=== PATIENT | female | born 1940 | race Caucasian/White ===

== ENCOUNTER 2017-10-09 22:45 | Inpatient (IN) | payer OTHER, MEDICAID ==
[2017-10-09] MEDS ORDERED: NS 1,000 ML IV ONE (22:50)
--- NOTE | 2017-10-09 22:55 | EDPHY ---
H & P HPI/ROS: HPI CHIEF COMPLAINT: Abnormal labs at residential HISTORY OF PRESENT ILLNESS: This patient is a 76-year-old female, she resides at [facility], she has a history of MS. She presents to the emergency room with acute dehydration, and apparently had labs done that showed worsening kidney function with a high BUN and creatinine. Upon arrival to the emergency room the patient has no complaints but she appears very dry on exam. She appears very dehydrated. She is very thin skin. Mucous membranes are dry. She denies chest pain or shortness of breath. She does complain of generalized weakness. Past Medical History: MS, gait instability Past Surgical History: No recent surgery. Social History: Denies drugs alcohol tobacco. Lives at [place]. Family History: Noncontributory ROS REVIEW OF SYSTEMS: A comprehensive 10 point review of systems is otherwise negative aside from elements mentioned in the history of present illness. Exam Constitutional dry, dehydrated, dry mucous membranes triage nursing summary reviewed, vital signs reviewed, awake/alert. Eyes normal conjunctivae and sclera, EOMI, PERRLA. HENT normal inspection, atraumatic, dry mucus membranes, no epistaxis, neck supple/ no meningismus, no raccoon eyes. Respiratory clear to auscultation bilaterally, normal breath sounds, no respiratory distress, no wheezing. Cardiovascular rate normal, regular rhythm, no murmur, no edema, distal pulses normal. Gastrointestinal soft, non-tender, no rebound, no guarding, normal bowel sounds, no distension, no pulsatile mass. Genitourinary no CVA tenderness. Musculoskeletal no midline vertebral tenderness, full range of motion, no calf swelling, no tenderness of extremities, no meningismus, good pulses, neurovascularly intact. Skin Back'/Gluteus: Skin breakdown present. erythemetous. Neurologic awake, alert and oriented x 3, AAOx3, moves all 4 extremities equally, motor intact, sensory intact, CN II-XII intact, normal cerebellar, normal vision, normal speech. Psychiatric normal mood/affect. Heme/Lymph/Immune no lymphadenopathy. Differential Diagnosis: Includes but is not limited to in a particular order acute dehydration, electrolyte disturbance, renal failure, infection, UTI Medical Decision Making: Plan for this patient IV establishment fluid bolus as she appears very on exam, check basic blood work, UA, Barton catheter for strict inside out if his renal failure. Re-evaluation: 1204AM: Patient is in renal failure. BUN is elevated psoas creatinine however potassium is okay. She does appear very dry on exam. I will place Barton catheter to watch is outs to make sure she is actually making urine. She will receive IV fluids 1 L here emergency room. Check UA for infection. Will the hospitalist service for acute renal failure. 1205am; I had a lengthy discussion with the son at bedside as well as patient about need for transfer as we are boarding multiple patients in the emergency room neck currently there are no beds in the hospital. However after lengthy discussion the patient refuses transfer to another facility as she would like to stay here [facility]. Does not want to be transferred. She states that she normally gets her care here. Given that the patient does not want to be transferred I will not force the issue. She will board here in emergency. She understands she could board up until mid day tomorrow. She is fine with this. So son at bedside. Patient's ultrasound reviewed. Shows pyelonephritis. No abscess. Patient here received 3rd L fluid. UA shows UTI with pyelonephritis. 1 g Rocephin has been given. Urine cultures have been pulled blood cultures been pulled. Patient has been admitted to the hospitalist service for UTI, pyelonephritis, dehydration, renal failure. Re-evaluate most likely due to pre renal. Source: Patient, Family, EMS Constitutional: Initial Vital Signs Heart Rate 100 10/10/17 00:00 Respiratory Rate 20 10/10/17 00:00 Blood Pressure 130/58 H 10/10/17 00:00 O2 Sat (%) 92 10/10/17 00:00 O2 Delivery Mode Room Air Allergies/Adverse Reactions: terfenadine [From Seldane] Allergy (Verified 01/07/11 21:53) Other-Enter Comments MAKEUP Allergy (Severe, Uncoded 01/07/11 21:53) EYES SWELLING MOLDS Allergy (Mild, Uncoded 01/07/11 21:53) Rash NEWSPAPER INK Allergy (Mild, Uncoded 01/07/11 21:53) Congestion TREES/GRASSES Allergy (Mild, Uncoded 01/07/11 21:53) Congestion Home Medications: Medication Instructions Recorded Acetaminophen [Tylenol ES 500 mg 1,000 mg PO Q8HRS PRN 10/10/17 (*)] Aspirin [Aspirin 325 mg (*)] 650 mg PO Q8HRS PRN 10/10/17 Atorvastatin Calcium [Lipitor 20 20 mg PO DAILY 10/10/17 mg (*)] Cetirizine [ZyrTEC 10 mg (*)] 10 mg PO DAILY 10/10/17 Ergocalciferol [Vitamin D2 (*)] 50,000 unit PO Q30D 10/10/17 Estrogens,Conjugated [Premarin 1 lyle VG Q2D 10/10/17 Vaginal (*)] Fluticasone Nasal [Flonase Nasal 1 sprays NASAL BID 10/10/17 Davilla (RX)] Gluc Oxid/l-Peroxid/Muramidase 15 ml MM Q8HRS PRN 10/10/17 [Biotene Mouthwash (*)] Multivitamins [Multivitamin (*)] 1 each PO DAILY 10/10/17 Ns [NS IV 1000ml (*)] 1,000 ml IV ONCE PRN 10/10/17 Ondansetron Odt [Zofran Odt 4 mg 8 mg PO Q8HRS PRN 10/10/17 (*)] Oseltamivir Phosphate [Tamiflu] 30 mg PO Q2D 10/10/17 Tamsulosin HCl [Flomax 0.4 MG (*)] 0.4 mg PO DAILY 10/10/17 Teriflunomide [Aubagio] 14 mg PO DAILY 10/10/17 Medical Decision Making - Data Points Laboratory Results: Laboratory Results 10/09/17 23:15 10/09/17 23:15 Medications Given: Acetaminophen (Tylenol) 1,000 mg PO Q8HRS PRN PRN Reason: Pain, Mild Stop: 04/08/18 09:04 Last Admin: 10/11/17 09:28 Dose: 1,000 mg Hydrocodone Bitart/Acetaminophen ([place] 5/325) 1 tab PO Q4HRS PRN PRN Reason: Pain, Moderate Able to Take PO Stop: 10/20/17 01:27 Last Admin: 10/13/17 21:03 Dose: 1 tab Alteplase, Recombinant (Cathflo Activase) 2 mg IVP PRN PRN PRN Reason: Per PICC line policy Stop: 04/08/18 17:56 Last Admin: 01/20/18 03:36 Dose: 2 mg Atorvastatin Calcium (Lipitor) 20 mg PO DAILY ROSEANN Stop: 04/09/18 08:59 Last Admin: 10/13/17 10:25 Dose: Not Given Cetirizine HCl (Zyrtec) 10 mg PO DAILY ROSEANN Stop: 04/09/18 08:59 Last Admin: 10/13/17 10:24 Dose: Not Given Estrogens Conjugated (Premarin Vaginal) 1 gm VG Q2D ROSEANN Stop: 04/10/18 08:59 Last Admin: 10/12/17 08:36 Dose: Not Given Fluticasone Propionate (Flonase Nasal Davilla) 1 sprays EACHNARE BID ROSEANN Stop: 04/08/18 20:59 Last Admin: 10/13/17 21:06 Dose: Not Given Glucose Oxid/Lactoperoxid/Muramidas (Biotene Mouthwash) 15 ml MM Q8HRS PRN PRN Reason: Dry Mouth Stop: 11/09/17 09:04 Last Admin: 10/11/17 10:53 Dose: 15 ml Heparin Sodium (Porcine) (Heparin Sc Injection) 5,000 unit SC Q8 ROSEANN Stop: 04/08/18 05:59 Last Admin: 10/13/17 21:03 Dose: 5,000 unit Cefepime HCl 1 gm/ Sterile (Water) 11.3 mls @ 135.6 mls/hr IV DAILY ROSEANN Stop: 11/12/17 08:59 Last Admin: 10/13/17 10:21 Dose: 11.3 mls Dextrose (D5w) 1,000 mls @ 50 mls/hr IV CONT ROSEANN Stop: 04/11/18 08:29 Last Admin: 10/13/17 11:18 Dose: 1,000 mls Miscellaneous Medication (Teriflunomide [Aubagio]) 14 mg PO DAILY ROSEANN Stop: 04/09/18 08:59 Last Admin: 10/13/17 10:24 Dose: Not Given Oseltamivir Phosphate (Tamiflu Oral Suspension) 30 mg PO HS ROSEANN Stop: 10/14/17 21:01 Last Admin: 10/13/17 21:06 Dose: Not Given Tamsulosin HCl (Flomax) 0.4 mg PO DAILY ROSEANN Stop: 04/09/18 08:59 Last Admin: 10/13/17 10:24 Dose: Not Given Discontinued Medications Sodium Chloride (Ns) 1,000 mls @ 0 mls/hr IV EDNOW ONE; Wide Open PRN Reason: Protocol Stop: 10/09/17 22:51 Last Admin: 10/09/17 23:27 Dose: 1,000 mls Sodium Chloride (Ns) 1,000 mls @ 0 mls/hr IV ONCE ONE PRN Reason: Wide Open Stop: 10/10/17 00:07 Last Admin: 10/10/17 00:23 Dose: 1,000 mls Ceftriaxone Sodium 1 gm/ (Sterile Water) 10 mls @ 150 mls/hr IV EDNOW ONE PRN Reason: Protocol Stop: 10/10/17 00:10 Last Admin: 10/10/17 00:50 Dose: 10 mls Sodium Chloride (Ns) 1,000 mls @ 100 mls/hr IV CONT ROSEANN Stop: 04/08/18 00:44 Last Admin: 10/11/17 04:12 Dose: 1,000 mls Ceftriaxone Sodium 1 gm/ (Sterile Water) 10 mls @ 150 mls/hr IV HS ROSEANN PRN Reason: Protocol Stop: 11/09/17 20:59 Last Admin: 10/11/17 20:45 Dose: 10 mls Sodium Chloride (Ns) 1,000 mls @ 0 mls/hr IV ONCE ONE PRN Reason: As Directed Stop: 10/10/17 17:31 Last Admin: 10/10/17 17:26 Dose: 1,000 mls Sodium Chloride (1/2 Ns) 1,000 mls @ 100 mls/hr IV CONT ROSEANN Stop: 04/09/18 08:59 Last Admin: 10/12/17 12:47 Dose: 1,000 mls Cefepime HCl 2 gm/ Sterile (Water) 12.5 mls @ 150 mls/hr IV ONCE ONE Stop: 10/12/17 08:49 Last Admin: 10/12/17 10:01 Dose: 12.5 mls Departure - Departure Disposition: [facility] In[facility] Acute Clinical Impression: Dehydration Renal failure Qualifiers: Renal failure chronicity: acute Acute renal failure type: with acute renal cortical necrosis Qualified Code(s): N17.1 - Acute kidney failure with acute cortical necrosis UTI (urinary tract infection) Qualifiers: Urinary tract infection type: acute pyelonephritis Qualified Code(s): N10 - Acute pyelonephritis Condition: Fair
[2017-10-09 23:28] LABS: PLATELET COUNT 239 10^3/uL (150-400)
[2017-10-09 23:36] LABS: INR 1.11 (0.83-1.16); PROTIME(PATIENT) 14.5 SEC (12.0-15.0)
[2017-10-10] MEDS ORDERED: NS 1,000 ML IV ONE ×2 (00:06→17:30)
[2017-10-10] MEDS ORDERED: cefTRIAXone 1 GM in STERILE WATER INJ 10 ML IV ONE (00:07)
[2017-10-10] MEDS ORDERED: ACETAMINOPHEN 325 MG TAB PO PRN (00:34)
[2017-10-10] MEDS ORDERED: ONDANSETRON 4 MG/2 ML VIAL IVP PRN (00:34)
[2017-10-10] MEDS ORDERED: NS 1,000 ML IV SCH (00:45)
[2017-10-10] MEDS ORDERED: HYDROCODONE/APAP 5/325 TAB ONE (01:49)
[2017-10-10] MEDS: HYDROCODONE/APAP 5/325 TAB PO PRN (02:11)
--- NOTE | 2017-10-10 02:59 | GHP ---
[f rep st] HISTORY AND PHYSICAL DATE OF ADMISSION: 10/10/2017 SOURCE: Patient able to provide majority of the history, appears reliable. EMR reviewed and case di scussed with ED provider. CHIEF COMPLAINT: Fevers, chills, and abnormal labs. HISTORY OF PRESENT ILLNESS: This is a pleasant 76-year-old female with past medical history signific ant for multiple sclerosis, peripheral vascular disease, hypothyroidism, with history of dysarthria, hyperlipidemia, and generalized weakness, who presents to the emergency department from [facility] complaints of acute on chronic generalized weakness and subjective fevers, chills. Patient had so ok outpatient labs completed, which noted an acute renal insufficiency, and patient sent to the emerg ency department for further evaluation. Patient denies any additional symptoms. No dysuria, flank p ain, abdominal pain, nausea, vomiting. She has had just diffuse generalized weakness. She is wheelc hair bound. Patient does have a cough, but she reports that this is at baseline. She denies any emmett nges in her symptoms. No shortness of breath. No chest pain, palpitations, rhinorrhea, congestion. Patient had been having declining oral intake and generalized weakness since the laboratory studies w ere obtained on 10/07 and 10/08. Patient did receive IV fluids continuous for 1 day prior to transfe r to the emergency department. She also had a UA completed, which was abnormal and sent for culture, results of which I do not have for culture sensitivity. On printed med rec, I am not appreciating a ntibiotic orders. Patient's med list, which has not yet been verified, does list vancomycin and Bact rim, but again, I cannot verify that, and Keflex and Augmentin, but unable to verify when these were last taken. REVIEW OF SYSTEMS: Negative except as noted above. Patient has been complaining of neck pain for th e past several days. She did have a cervical spine x-ray on outpatient basis that did not show any a cute findings. She is also complaining of a headache that started today with some double vision that is worse than normal. She does, at baseline, have some occasional changes in her vision with her hi story of multiple sclerosis. ALLERGIES: Terfenadine, makeup, mold, newspaper ink, trees, and grasses. HOME MEDICATIONS: As per [facility] med rec, aspirin 650 mg p.o. q.8 hours p.r.n. for fevers over 10 0 or pain level, atorvastatin 20 mg p.o. daily, teriflunomide 14 mg p.o. daily for multiple sclerosis , Biotene q.8 p.r.n., Centrum 1 tab p.o. daily, vitamin D3 at 50,000 units p.o. monthly. D5 normal sa line total given 1 L plus maintenance for 1 day, was given on 10/08/2017. Patient also received a lit er of normal saline 10/09/2017. Flomax 0.4 mg p.o. daily for urge incontinence, Flonase 1 spray both nares twice daily, Premarin cream 0.625 mg vaginally every other day, Probiotic 1 tab p.o. twice myles ly, Kayexalate 15 g p.o. x1 on 10/08/2017. Tamiflu was given on 10/01/2017 until 10/03/2017 for expos ure. Tylenol 500 mg 2 tabs p.o. q.8 hours p.r.n., Zofran 4 mg p.o. q.8 hours p.r.n., Zyrtec 10 mg p. o. daily. PAST MEDICAL HISTORY: Significant for multiple sclerosis, peripheral vascular disease with venous in sufficiency, hypothyroidism, dysarthria, hyperlipidemia, generalized weakness, depressed mood, urge i ncontinence. PAST SURGICAL HISTORY: Patient reports bilateral wrist surgery due to fractures from fall on 2 separ ate occasions. FAMILY HISTORY: Patient is unsure if any multiple sclerosis in other relatives. SOCIAL HISTORY: Patient resides at [facility]. She has a previous history of tobacco abuse, nothing current. No alcohol or drugs. COR STATUS: Patient with advance directives completed. She desires to be a full code. PHYSICAL EXAMINATION: VITAL SIGNS: Upon arrival to the emergency department, blood pressure 130/58, heart rate 100, respiratory rate 20, O2 saturation 92% on room air. Afebrile. GENERAL: No acute d istress. Pleasant, frail, elderly, thin-appearing female, who is lying quietly in bed. Patient appe ars chronically ill. Nontoxic. HEAD: Normocephalic, atraumatic. EYES: Extraocular muscles grossl y intact. Limited evaluation secondary to patient's fatigue, inability to follow instructions. ENT: Mucous membranes are significantly dry. Patient does have some difficulty speaking due to her mout h being so dry. No cracked lips. Dentition intact. NECK: Supple. Trachea midline. Patient is co mplaining of some superficial soft tissue tenderness to palpation on her neck bilaterally. She has n o decreased range of motion or meningeal signs. CV: Regular rate and rhythm. No murmurs, rubs, or gallops appreciated. RESPIRATORY: Unlabored breathing. LUNGS: Clear to auscultation bilaterally. Patient does have an intermittent cough, nonproductive. ABDOMEN: Positive bowel sounds. Soft, nont yeni to palpation. Nondistended. No rebound, guarding, or masses appreciated. : A Barton cathet er has just been put into place. There is thick yellow-orange colored purulent drainage in the Barton . Patient denies any suprapubic tenderness to palpation. Unable to assess CVA tenderness secondary to patient's decreased mobility and pain. EXTREMITIES: Patient with diminished pedal pulses. It is very limited to palpation due to chronic venostasis changes and flaking dry skin on her lower extrem ities bilaterally. Patient reports she is not able to move her lower legs when asked secondary to co mplaints of pain and weakness bilaterally. NEURO: Grossly nonfocal. No facial drooping. Patient d oes have some apparent aphasia and becomes a little frustrated, but reports this is not new. She is able to move her upper extremities, but she is with generalized weaknesses as noted above. Patient d eclines to move her lower extremities secondary to pain. PSYCH: Patient's affect is flat, but she t ends to be mostly cooperative with the interview. She does become intermittently flustered with her aphasia and inability to answer questions quickly. LABORATORY STUDIES: WBC 14.95, H and H 11.6 and 34.5, MCV 89.1, platelet count 239, neutrophilia 86. 3%. No bandemia. Review of the patient's laboratory studies from [facility] on 10/08/2017, patient' s white count was 11.2, and on 10/07/2017, it was 12.1. PT is 14.5, INR 1.11, PTT is 27.5. Sodium i s 133, potassium 5.3, chloride 108, CO2 is 11, anion gap 14, BUN 116, creatinine 4.8, glucose 128. C alcium 8.6. Magnesium 2.8. Bilirubin 0.7, conjugated bilirubin 0.6, ALT is 58, AST 66, alkaline tiarra sphatase is 312, total protein 6.7, albumin 3.08. UA: Specific gravity is 1.010, pH of 5.0, protein 2+, blood 2+, leukocyte esterase 2+, RBCs 50-182, WBCs 50-182, epithelial cells 1+, bacteria 4+, ran dom urine creatinine 54.7, urine sodium 56, glucose negative. Chest x-ray image report reviewed by myself showing COPD, bronchitis, and airway disease. Negative f or pulmonary edema or pneumonia. ASSESSMENT AND PLAN: A pleasant 76-year-old female with a history of multiple sclerosis, peripheral vascular disease, generalized debility, hypothyroidism, who presents to the emergency department toda y with acute renal failure and worsening generalized weakness. 1. Acute renal failure. Patient's outside laboratory studies from the 15th and 16th of this month s how patient's creatinine has actually been downtrending slightly from 5.7 on the 15th and 5.6, and no w 4.8. Her FENA calculates to approximate 3.7% indicating an intrarenal insult. Patient does appear clinically to be quite dry. However, she will be receiving IV fluids and has received 2 L in the em ergency department. Will plan to continue with continuous hydration. Patient additionally with evid ence of pyelonephritis. She has bilateral hydro on renal ultrasound without report of any abscesses on preliminary report. Will continue to follow up on final read. Patient has been started on Roceph in. Rocephin has been ordered as well as cultures. Patient does not meet any systemic inflammatory response syndrome or sepsis criteria at this point. Vital signs are acceptable and within normal giron its at this time. Will monitor closely. 2. Acute on chronic generalized weakness with history of multiple sclerosis, given patient's finding s of pyuria and possibly pyelonephritis, patient with acute worsening of her multiple sclerosis. She is chronically on teriflunomide, which could result in immunosuppression. Patient has been reportin g some subjective fevers, chills ongoing for the past month. Today, she does have a leukocytosis, bu t vitals are stable. Will need to monitor quite closely. Will hold further dosing of the patient's teriflunomide. 3. Anemia. Patient appears to have history, could be acutely declined in setting of acute illness. No evidence of active bleeding. Will monitor closely. 4. Hyponatremia, likely related to patient's hypovolemia with dehydration. Continue with IV fluid r eplacement and monitor BMP. 5. Hyperkalemia, mildly increased in setting of acute renal failure and dehydration, status post 2 L in the emergency department. Will plan to repeat BMP here shortly. Patient does not have any evide nce of need for acute dialysis at this point, but will further discuss with Nephrology tomorrow if no improvement in renal function. Patient's initial labs at [facility] on 10/07/2017, patient's potass ium was 6.70. She received Kayexalate and IV fluid supplementation with improvement of her potassium down to 4.9 on 10/08/2017. 6. Hyperglycemia, is nonfasting lab. Will plan to monitor patient without history of diabetes. 7. Transaminitis, mildly elevated. This could be related to patient's acute infectious process vers us her treatment with the teriflunomide. 8. Hypoalbuminemia, likely declined in setting of acute illness. Will plan to monitor. 9. Multiple sclerosis. Again, holding patient's immunotherapy, PT/OT. 10. History of peripheral vascular disease. Continue aspirin. 11. Hyperlipidemia. Hold off on statin with elevated LFTs. 12. Hypothyroidism listed on patient's problem list from [facility], but she is not on any replaceme nt. Will check TSH in the morning. 13. Fluid, electrolyte, nutrition. Status post 2 L bolus in the emergency department. Will plan to continue with normal saline at a rate of 100. Electrolyte replacement p.r.n. will be monitored. Ashok jeff is on the a low-sodium pureed diet. May require further review of patient's speech for any spe ech consult. 14. Prophylaxis. Sequential compression devices and heparin in setting of acute renal failure. No evidence of active bleeding at this time. We will monitor H and H closely. 15. Code status is full. 16. Disposition. Patient admitted to inpatient status in setting of acute renal failure with likely pyelonephritis on immunosuppressive therapy. /[id number]/MODL
[2017-10-10] MEDS: HEPARIN 5,000 UNIT/0.5 ML SYR SC SCH ×3 (06:17→22:06)
[2017-10-10 06:34] LABS: PLATELET COUNT 187 10^3/uL (150-400)
[2017-10-10] MEDS ORDERED: ACETAMINOPHEN 500 MG TAB PO PRN (09:05)
[2017-10-10] MEDS ORDERED: BIOTENE DRY MOUTH MOUTHWASH 237 ML BTL MM PRN (09:05)
--- NOTE | 2017-10-10 10:59 | WOCRNPDOC ---
WOCRN Advanced Assessment Note - Skin Integrity Problem, Advanced Assess Sacrum Pressure Injury Dressing Type: Allevyn Life Dressing Description: Clean/Dry, Intact Exudate Amount: Minimal Exudate Color: Brown Exudate Characteristic(s): Thick Integumentary Issue Intervention: Visualized Under Dressing Rani Wound Tissue: Erythema Wound Bed Color: Black, Brown, Purple, Yellow Wound Bed Constitution: Mixed Loose & Adhered Slough/Eschar (30% in the middle of the wound; appears to be older than the rest of the wound which presents as a new DTI) Site Measurement - Head-to-Toe Length X Width X Depth (cm): 7x11x0.2 Pressure Injury Stage: Deep Tissue Injury (DTI) Pressure Injury Present on Admit: Yes Skin Integrity Problem Comment: Wound of mixed age. Coccyx area appears to have established slough/eschar mix that is much older than the newly forming/ evolving DTI that surrounds it. The skin over the DTI is just begining to desquamate and will continue to declare itself over the next week. Will attempt to initiate some autolytic debridement with honey and recheck next week. Patient turned onto right side and HOB reduced to 20 degrees. Right Heel Pressure Injury Dressing Type: Open to Air Exudate Amount: None Rani Wound Tissue: Erythema Wound Bed Constitution: Intact Serous Filled Blister Site Measurement - Head-to-Toe Length X Width X Depth (cm): [id number] blister, runs 2 to 7 oclock 5 cm. Pressure Injury Stage: Deep Tissue Injury (DTI) Pressure Injury Present on Admit: Yes Skin Integrity Problem Comment: Offloading boots placed.
--- NOTE | 2017-10-10 15:53 | PDMN ---
Medical Necessity Medical necessity: est los>2mn for [facility], likely pyelonephritis, acute on chronic weakness, anemia, hyponatremia, hyperkalemia, hyperglycemia, transaminitis, and hypoalbuminemia; admit for IVF, IV abx, follow cx's and labs, and PT/OT; comorbid MS on immunosuppressive, PVD, HLD; per order and H&P 10/10/17
--- NOTE | 2017-10-10 17:53 | HOSPPROG ---
Hospitalist Progress Note Assessment/Plan: * Hypotension - SBP now falling into the 70s -bolus 1L -place PICC line - she may need pressors -I think she is still very dry, more than sepsis -check lactate * UTI -IV Rocephin * ARF -improving with IVF - continue -no indication for acute dialysis * Advanced MS * PVD - ASA * Increased LFT - suspect due to infection cc time 40 minutes Subjective: Minimally responsive, making urine but a little sluggish. This afternoon SBP are dropping. Objective: Vital Signs Temp Pulse Resp BP Pulse Ox 37.1 C 101 H 20 70/59 L 97 10/10/17 14:54 10/10/17 17:05 10/10/17 17:05 10/10/17 17:05 10/10/17 17:05 Laboratory Results 10/10/17 06:10 10/10/17 06:10 10/09/17 10/10/17 10/11/17 05:59 05:59 05:59 Intake Total 2000 Output Total 900 Balance 1100 PT 14.5 SEC (12.0-15.0) 10/09/17 23:15 INR 1.11 (0.83-1.16) 10/09/17 23:15 CXR viewed, my personal interpretation is - negative Renal US - distended collecting system with pyuria - Physical Exam Constitutional: no apparent distress, appears nourished, not in pain Cardiovascular: regular rate and rhythym, no murmur, rub, or gallop Respiratory: no respiratory distress, no rales or rhonchi, clear to auscultation Gastrointestinal: normoactive bowel sounds, soft, non-tender abdomen, no palpable masses Skin: no rashes or abrasions, no fluctuance, no induration Neurologic: No AAOx3 Psychiatric: encephalopathic, poor insight, poor judgement, poor memory, No interacting appropriately, No agitated ICD10 Worksheet Patient Problems: Problems Problem Status Onset Dehydration Acute Renal failure Acute UTI (urinary tract infection) Acute
[2017-10-10] MEDS: OSELTAMIVIR 6 MG/ML UDSYR PO SCH (21:56)
[2017-10-10] MEDS: FLUTICASONE NASAL 120 SPRAYS/16 GM MDI EACHNARE SCH (21:56)
[2017-10-10] MEDS: cefTRIAXone 1 GM in STERILE WATER INJ 10 ML IV SCH (22:08)
[2017-10-11 05:18] LABS: PLATELET COUNT 201 10^3/uL (150-400)
[2017-10-11] MEDS: HEPARIN 5,000 UNIT/0.5 ML SYR SC SCH ×3 (08:03→20:47)
[2017-10-11] MEDS: TAMSULOSIN HCL 0.4 MG CAP PO SCH (09:28)
[2017-10-11] MEDS: CETIRIZINE 10 MG TAB PO SCH (09:28)
[2017-10-11] MEDS: ATORVASTATIN CALCIUM 20 MG TAB PO SCH (09:28)
[2017-10-11] MEDS: 1/2 NS 1,000 ML IV SCH ×2 (09:28→23:23)
[2017-10-11] MEDS: FLUTICASONE NASAL 120 SPRAYS/16 GM MDI EACHNARE SCH ×2 (09:49→20:46)
[2017-10-11] MEDS: Teriflunomide [Aubagio] 14 MG PO SCH (09:49)
--- NOTE | 2017-10-11 09:56 | ASMTCASEMG ---
Living Arrangements What is your living Answers: Alone arrangement? Who do you live with? Type Of Residence What kind of residence do Answers: House you live in? Discharge Plan Comments Coordination Status Comments Notes: Patient is a 76yo female with a hx of MS, peripheral vascular disease, hypothyroidism who was admitted for acute renal failure, hyponatremia, anemia, and hyperkalemia. Patient lives at [facility] . No orders for therapies yet. D/C needs TBD. Patient most likely to d/c back to [facility]. CM will follow. Date Signed: 10/11/2017 09:55 AM Electronically Signed By:Reina Canseco LCSW
[2017-10-11] MEDS: HYDROCODONE/APAP 5/325 TAB PO PRN (12:53)
--- NOTE | 2017-10-11 15:46 | HOSPPROG ---
Hospitalist Progress Note Assessment/Plan: * Influenza A - Tamiflu * Hypotension - due to dehydration -stabilized with IVF * UTI -IV Rocephin - await culture * ARF -improving with IVF - continue -no indication for acute dialysis * Advanced MS * PVD - ASA * Increased LFT - suspect due to infection * Hypernatremia - needs increased free H2O -change IVF 1/2 NS * Metabolic encephalopathy -mental status improving Subjective: More awake today Objective: Vital Signs Temp Pulse Resp BP Pulse Ox 35.8 C L 87 20 104/62 95 10/11/17 08:00 10/11/17 08:00 10/11/17 08:00 10/11/17 08:00 10/11/17 08:00 Microbiology 10/10/17 16:15 Respiratory Panel (PCR) - Final Nasal, Sinus - Swab Influenza Virus Type A H3 Laboratory Results 10/11/17 05:05 10/11/17 05:05 10/10/17 10/11/17 10/12/17 05:59 05:59 05:59 Intake Total 4150 Output Total 1900 Balance 2250 PT 14.5 SEC (12.0-15.0) 10/09/17 23:15 INR 1.11 (0.83-1.16) 10/09/17 23:15 CXR viewed, my personal interpretation is - minimal infiltrate tele reviewed - NSR - Physical Exam Constitutional: no apparent distress, appears nourished, not in pain Cardiovascular: regular rate and rhythym, no murmur, rub, or gallop Respiratory: no respiratory distress, no rales or rhonchi, clear to auscultation Gastrointestinal: normoactive bowel sounds, soft, non-tender abdomen, no palpable masses Skin: no rashes or abrasions, no fluctuance, no induration Neurologic: No AAOx3 Psychiatric: flat affect, poor insight, poor judgement, poor memory, No thought process linear, No agitated ICD10 Worksheet Patient Problems: Problems Problem Status Onset Dehydration Acute Renal failure Acute UTI (urinary tract infection) Acute
[2017-10-11] MEDS: cefTRIAXone 1 GM in STERILE WATER INJ 10 ML IV SCH (20:45)
[2017-10-11] MEDS: OSELTAMIVIR 6 MG/ML UDSYR PO SCH (20:50)
[2017-10-12] MEDS: HEPARIN 5,000 UNIT/0.5 ML SYR SC SCH ×3 (01:55→20:30)
[2017-10-12] MEDS: ALTEPLASE 2 MG VIAL IVP PRN ×2 (03:13→03:36)
[2017-10-12 05:37] LABS: PLATELET COUNT 218 10^3/uL (150-400)
[2017-10-12] MEDS: ATORVASTATIN CALCIUM 20 MG TAB PO SCH ×2 (08:18→08:35)
[2017-10-12] MEDS: HYDROCODONE/APAP 5/325 TAB PO PRN ×2 (08:18→18:24)
[2017-10-12] MEDS: CETIRIZINE 10 MG TAB PO SCH ×2 (08:19→08:36)
[2017-10-12] MEDS: TAMSULOSIN HCL 0.4 MG CAP PO SCH (08:19)
[2017-10-12] MEDS ORDERED: cefTAZidime PENTAHYDRATE 1 GM in NS 50 ML IV SCH (08:20)
[2017-10-12] MEDS: FLUTICASONE NASAL 120 SPRAYS/16 GM MDI EACHNARE SCH ×2 (08:21→20:23)
[2017-10-12] MEDS: Teriflunomide [Aubagio] 14 MG PO SCH (08:22)
[2017-10-12] MEDS: ESTROGENS,CONJUGATED 30 GM CRTUBE VG SCH (08:36)
[2017-10-12] MEDS ORDERED: CEFEPIME HCL 2 GM in STERILE WATER INJ 12.5 ML IV ONE (08:45)
[2017-10-12] MEDS: 1/2 NS 1,000 ML IV SCH (12:47)
--- NOTE | 2017-10-12 16:22 | HOSPPROG ---
Hospitalist Progress Note Assessment/Plan: * Influenza A - Tamiflu * Hypotension - due to dehydration -stabilized with IVF * UTI - pseudomonas - gross pus with catheter placement -change to IV cefepime -ID consult * ARF due to hypovolemia -improving with IVF - continue * Advanced MS * PVD - ASA * Increased LFT - suspect due to infection * Hypernatremia - needs increased free H2O -change IVF 1/2 NS * Metabolic encephalopathy -mental status improving Subjective: Better Objective: Vital Signs Temp Pulse Resp BP Pulse Ox 36.3 C 97 16 99/69 L 99 10/12/17 15:53 10/12/17 15:53 10/12/17 15:53 10/12/17 15:53 10/12/17 15:53 Laboratory Results 10/12/17 04:56 10/12/17 04:56 10/11/17 10/12/17 10/13/17 05:59 05:59 05:59 Intake Total 4150 1419 Output Total 1900 1325 Balance 2250 94 PT 14.5 SEC (12.0-15.0) 10/09/17 23:15 INR 1.11 (0.83-1.16) 10/09/17 23:15 - Physical Exam Constitutional: no apparent distress, appears nourished, not in pain Cardiovascular: regular rate and rhythym, no murmur, rub, or gallop Respiratory: no respiratory distress, no rales or rhonchi, clear to auscultation Gastrointestinal: normoactive bowel sounds, soft, non-tender abdomen, no palpable masses Skin: no rashes or abrasions, no fluctuance, no induration Neurologic: weakness Psychiatric: not anxious, flat affect, No anxious, No agitated ICD10 Worksheet Patient Problems: Problems Problem Status Onset Dehydration Acute Renal failure Acute UTI (urinary tract infection) Acute
[2017-10-12] MEDS: OSELTAMIVIR 6 MG/ML UDSYR PO SCH (20:25)
[2017-10-13 05:46] LABS: PLATELET COUNT 222 10^3/uL (150-400)
[2017-10-13] MEDS: HEPARIN 5,000 UNIT/0.5 ML SYR SC SCH ×3 (06:10→21:03)
[2017-10-13] MEDS ORDERED: D5W 1,000 ML IV SCH (08:30)
[2017-10-13] MEDS: CEFEPIME HCL 1 GM in STERILE WATER INJ 11.3 ML IV SCH (10:21)
[2017-10-13] MEDS: TAMSULOSIN HCL 0.4 MG CAP PO SCH (10:24)
[2017-10-13] MEDS: FLUTICASONE NASAL 120 SPRAYS/16 GM MDI EACHNARE SCH ×2 (10:24→21:06)
[2017-10-13] MEDS: Teriflunomide [Aubagio] 14 MG PO SCH (10:24)
[2017-10-13] MEDS: CETIRIZINE 10 MG TAB PO SCH (10:24)
[2017-10-13] MEDS: ATORVASTATIN CALCIUM 20 MG TAB PO SCH (10:25)
--- NOTE | 2017-10-13 15:14 | GCON ---
[f rep st] CONSULTATION INFECTIOUS DISEASE CONSULTATION DATE OF CONSULTATION: 10/13/2017 REFERRING PHYSICIAN: Catina Cordero MD REASON FOR CONSULTATION: Pseudomonas UTI. CHIEF COMPLAINT: Dysuria. HISTORY OF PRESENTING ILLNESS: This is a 76-year-old female with a past medical history significant for multiple sclerosis, peripheral vascular disease, hypothyroidism, dementia, who came to the emerge ncy room from [employer] with weakness and fevers and chills. She was found to have acute renal insu fficiency on labs. She states that she was having dysuria and she has been having that for 1 month. She denies any flank pain or back pain. Blood cultures x2 sets were done on admit which are no grow th to date. She had a urinalysis done which showed urine RBCs of 50-118 with 4+ bacteria and greater than 100,000 Pseudomonas growing. Had an abdominal ultrasound done also which showed [id number] te distention of the collecting systems bilaterally, and findings compatible with a purulent type of urine suggestive of pyelonephrosis. She was initially on ceftriaxone, but changed to cefepime yester day. She also ended up having a flu swab done which was positive and so she is on Tamiflu. Her whit e blood cell count has been elevated with a left shift. Infectious Disease is now consulted for furt her evaluation pending the above. REVIEW OF SYSTEMS: GENERAL: Currently no fevers or shaking chills. HEAD: No headaches. EYES: No change in vision. ENT: No sore throat, difficulty swallowing, ear pain, or ear drainage. CARDIOVA SCULAR: Denies any chest pain or rapid heartbeat. RESPIRATORY: Denies any shortness of breath or c ough. ABDOMEN: No nausea, vomiting, abdominal pain, or diarrhea. : She complains of dysuria. M USCULOSKELETAL: Denies any joint pains. SKIN: No rashes. The rest of the review of systems is essentially negative except as above. PAST MEDICAL HISTORY: Significant for multiple sclerosis, peripheral vascular disease, hypothyroidis m, dysarthria, dyslipidemia, weakness. PAST SURGICAL HISTORY: Significant for bilateral wrist surgeries. ALLERGIES: To terfenadine. SOCIAL HISTORY: She lives at [employer]. History of tobacco use. No alcohol. MEDICATIONS: As per NOV. PHYSICAL EXAMINATION: VITAL SIGNS: Temperature current 37.3. Pulse 66, blood pressure 110/69, satu ration 95% on 3 L O2 via nasal cannula. Respiratory rate is 17. GENERAL APPEARANCE: She is resting in bed in no acute respiratory distress. Awake, alert, and oriented x3. HEENT: Head is normocepha lic, atraumatic. Eyes without conjunctival injection. No petechiae noted. Oropharynx is clear. Sh e has dry mucous membranes. CARDIOVASCULAR: S1, S2. Regular rate and rhythm. RESPIRATORY: Clear to auscultation bilaterally. No rhonchi or rales appreciated. ABDOMEN: Positive bowel sounds in al l quadrants. Soft, nontender, nondistended. No CVA tenderness bilaterally. MUSCULOSKELETAL: No ob vious joint effusions or lower extremity edema. SKIN: No obvious rashes. LABS: White blood cell count 12.1, hemoglobin 9.2, platelets are 222, neutrophil count is 83%. Sodi um 151, potassium 3.6, chloride is 127, bicarb is 13, BUN is 38, creatinine is 1.9, down from 4.8. L FTs done yesterday were within the normal range. Alkaline phosphatase elevated at 239. Urinalysis: Urine WBCs 50-182. Urine RBCs 50-182, leukocyte esterase 2+, blood 2+, protein, 2+, bacteria, 4+. Blood cultures 2 sets no growth to date. Urine culture with greater than 100,000 Pseudomonas aerugin keagan, intermediate to Levaquin, otherwise sensitive, and she also has a respiratory swab positive for influenza A. ASSESSMENT: 1. Pseudomonas urinary tract infection with possible pyelonephrosis. 2. Influenza A. PLAN: Continue with droplet precautions on Tamiflu to complete 5 days of therapy for the influenza. Will continue with cefepime renally dosed for now and would recommend a CT of the abdomen and pelvis noncontrast to further evaluate. Recheck labs in the a.m. Depending on findings, may need to have Urology see patient. Care coordinated with the pharmacy team. I thank you very much for the opportunity to care for your patient in consultation. /[id number]/MODL
--- NOTE | 2017-10-13 15:51 | HOSPPROG ---
Hospitalist Progress Note Assessment/Plan: * Influenza A - Tamiflu * Hypotension - due to dehydration -stabilized with IVF * UTI/Pyelo - pseudomonas - gross pus with catheter placement -IV cefepime -check CT abd/pelvis - further eval dilated collecting system * ARF due to hypovolemia -improving with IVF - continue * Advanced MS * PVD - ASA * Increased LFT - suspect due to infection * Hypernatremia - needs increased free H2O -change D5W * Metabolic encephalopathy -mental status improving Subjective: No new complaints, denies pain Objective: Vital Signs Temp Pulse Resp BP Pulse Ox 36.3 C 84 19 97/55 L 98 10/13/17 15:20 10/13/17 15:20 10/13/17 15:20 10/13/17 15:20 10/13/17 15:20 Laboratory Results 10/13/17 05:25 10/13/17 05:25 10/12/17 10/13/17 10/14/17 05:59 05:59 05:59 Intake Total 1419 2439 Output Total 1325 1000 600 Balance 94 1439 -600 PT 14.5 SEC (12.0-15.0) 10/09/17 23:15 INR 1.11 (0.83-1.16) 10/09/17 23:15 - Physical Exam Constitutional: no apparent distress, appears nourished, not in pain Cardiovascular: regular rate and rhythym, no murmur, rub, or gallop Respiratory: no respiratory distress, no rales or rhonchi, clear to auscultation Gastrointestinal: normoactive bowel sounds, soft, non-tender abdomen, no palpable masses Skin: no rashes or abrasions, no fluctuance, no induration Psychiatric: encephalopathic, flat affect, poor insight, No anxious, No agitated ICD10 Worksheet Patient Problems: Problems Problem Status Onset Dehydration Acute Renal failure Acute UTI (urinary tract infection) Acute
[2017-10-13] MEDS: HYDROCODONE/APAP 5/325 TAB PO PRN (21:03)
[2017-10-13] MEDS: OSELTAMIVIR 6 MG/ML UDSYR PO SCH (21:06)
[2017-10-14] MEDS: ALTEPLASE 2 MG VIAL IVP PRN (05:06)
[2017-10-14] MEDS: HEPARIN 5,000 UNIT/0.5 ML SYR SC SCH ×3 (05:06→23:44)
[2017-10-14] MEDS: HYDROCODONE/APAP 5/325 TAB PO PRN (07:58)
[2017-10-14] MEDS: ATORVASTATIN CALCIUM 20 MG TAB PO SCH (08:37)
[2017-10-14] MEDS: CETIRIZINE 10 MG TAB PO SCH (08:37)
[2017-10-14] MEDS: TAMSULOSIN HCL 0.4 MG CAP PO SCH (08:37)
[2017-10-14] MEDS: FLUTICASONE NASAL 120 SPRAYS/16 GM MDI EACHNARE SCH ×2 (08:37→23:45)
[2017-10-14] MEDS: ESTROGENS,CONJUGATED 30 GM CRTUBE VG SCH (08:37)
[2017-10-14] MEDS: Teriflunomide [Aubagio] 14 MG PO SCH (08:38)
[2017-10-14] MEDS: CEFEPIME HCL 1 GM in STERILE WATER INJ 11.3 ML IV SCH (08:41)
[2017-10-14 08:52] LABS: PLATELET COUNT 239 10^3/uL (150-400)
--- NOTE | 2017-10-14 09:58 | HOSPPROG ---
Hospitalist Progress Note Assessment/Plan: * Influenza A - Cont Tamiflu * Hypotension - due to dehydration, resolved with volume repletion * UTI/Pyelo - pseudomonas - gross pus with catheter placement, CT yesterday with b/l hydro -urology consult today -Cont IV cefepime * HANNAH due to hypovolemia - Cr down to 1.3 from 4.8 -improving with IVF * AHRF - now on 5 LPM, ?atelectatic. -repeat CXR * Advanced MS - wheelchair bound at baseline, lives at [facility] * PVD - ASA * Increased LFT - suspect due to infection * Hypernatremia - needs increased free H2O -increased D5W to 100/hr -recheck BMP this afternoon * Hypokalemia - replace per protocol, follow * Metabolic encephalopathy - suspected due to infection with influenza and UTI -d/c opiates * DVT PPLX - heparin * Code status - full code * Care goals - discussed with son, cont full code. she has reasonably good QOL at baseline Subjective: Pt answers basic questions, not interacting much, little oral intake. No N/V. No fevers. Denies pain Objective: Vital Signs Temp Pulse Resp BP Pulse Ox 36.2 C 93 18 123/61 H 100 10/14/17 08:00 10/14/17 08:00 10/14/17 08:00 10/14/17 08:00 10/14/17 08:00 Laboratory Results 10/14/17 08:30 10/14/17 08:30 10/13/17 10/14/17 10/15/17 05:59 05:59 05:59 Intake Total 2439 547 Output Total 1000 1950 Balance 1439 -1403 PT 14.5 SEC (12.0-15.0) 10/09/17 23:15 INR 1.11 (0.83-1.16) 10/09/17 23:15 - Physical Exam Constitutional: no apparent distress Eyes: PERRL Ears, Nose, Mouth, Throat: moist mucous membranes Cardiovascular: regular rate and rhythym Respiratory: no respiratory distress, inspiratory crackles Gastrointestinal: normoactive bowel sounds, soft, non-tender abdomen Skin: warm Musculoskeletal: generalized weakness Psychiatric: encephalopathic ICD10 Worksheet Patient Problems: Problems Problem Status Onset Dehydration Acute Renal failure Acute UTI (urinary tract infection) Acute
[2017-10-14] MEDS ORDERED: PROTOCOL POTASSIUM 1 DOSE MISC PRN (10:06)
[2017-10-14] MEDS ORDERED: PROTOCOL CALCIUM 1 DOSE IV PRN (10:21)
[2017-10-14] MEDS ORDERED: CEFEPIME HCL 1 GM in STERILE WATER INJ 11.3 ML IV ONE (10:45)
[2017-10-14] MEDS: OSELTAMIVIR 6 MG/ML UDSYR PO SCH ×2 (11:14→23:46)
[2017-10-14] MEDS: guaiFENesin 600 MG TAB.ER PO SCH ×2 (11:14→23:45)
[2017-10-14] MEDS: ALBUTEROL 3 ML DEYVIAL IH SCH ×3 (11:43→19:29)
[2017-10-14] MEDS ORDERED: POTASSIUM Cl (KCl) 100 ML IV SCH (13:19)
[2017-10-14] MEDS: POTASSIUM Cl (KCl) 10 MEQ in NS 100 ML IV SCH ×4 (14:12→17:56)
--- NOTE | 2017-10-14 16:22 | PDPCPN ---
Palliative Care Progress Note Assessment/Plan: Referring provider: Dr Cordero Reason for consult: Complex medical decision making Symptom control HPI: Yola Cuenca is a 76 yo with PMH advanced MS (wheelchair bound at baseline), admitted to the hospital for generalized weakness. Found to have pyelonephritis , ARF, and + Flu. Clinically bed bound with dysphagia, on oxygen, and failing to thrive. Has had poor oral intake for the past 5 days. Palliative care consulted for complex medical decision making. Met with Yola this afternoon. She seemed to be able to shake her head yes/no to questions but this was not consistent. When asked if she wanted a feeding tube she shook her head "yes", then when asked if she wanted to just focus on comfort and not life prolongation she also nodded "yes". Per nursing staff she has at times seemed to indicate she "was done" and was more clearly speaking her wishes earlier in the day. Spoke with her son Kirill over the phone who states her responses are because she often becomes frustrated with people as she is "stubborn". So she will often say she is "done" but he interrupts this as she is done with the moment but not done with life. He stated they have discussed end of life wishes and she has wanted aggressive medical interventions as long as she is competent. Discussed at present she is not able to make her own decisions. Kirill stated he will be in tomorrow to see her and hopefully see how she is doing so that they can come to a decisions regarding potential for future needs of tube feedings or other life prolonging measures. Assessment: Physical: - Pain: appears uncomfortable at times - tylenol PRN - Dyspnea: mild dyspnea - oxygen as needed - on tamiflu - poor appetite - diet as tolerated - aspiration precautions Emotional/psychological: some confusion: unsure of exact baseline Advanced Care Planning: Is patient decisional?: No not at this time Code Status: Full MD POA: unsure who is MDPOA. Plan: Will try to meet with son Kirill tomorrow morning to discuss goals of care. Will continue to assess with patient as able. Subjective: shakes head yes and no Objective: Social History: . Lives at [place] for the past 3 years. Has 2 sons involved. Medication list reviewed ROS: unable to obtain Functional assessment: PPS: 30% Functional status: dependent on ADLs, IADLs Vital Signs Temp Pulse Resp BP Pulse Ox 37.2 C 108 H 17 125/71 H 98 10/14/17 14:15 10/14/17 15:49 10/14/17 14:15 10/14/17 14:15 10/14/17 15:49 Laboratory Results 10/14/17 08:30 10/14/17 08:30 10/13/17 10/14/17 10/15/17 05:59 05:59 05:59 Intake Total 2439 547 Output Total 1000 1950 Balance 1439 -1403 PT 14.5 SEC (12.0-15.0) 10/09/17 23:15 INR 1.11 (0.83-1.16) 10/09/17 23:15 Physical Exam - Physical Exam General Appearance: no apparent distress, other (awaknes to name but fatigued) Respiratory: No respiratory distress, No accessory muscle use Skin: normal color, warm/dry Extremities: No pedal edema Neuro/Psych: other (awakens to name but confused and not answering appropriately ) ICD10 Worksheet Patient Problems: Problems Problem Status Onset Dehydration Acute Palliative care encounter Acute Renal failure Acute UTI (urinary tract infection) Acute - ICD10 Problem Qualifiers (1) Palliative care encounter
--- NOTE | 2017-10-14 17:01 | ASMTCMCOM ---
CM Note CM Note Notes: Per RN pt has been refusing care and not eating. Discussed w/ palliative care ARBORER, Alicia who plans on meeting w/pt tomorrow AM to discuss. CM will follow. Date Signed: 10/14/2017 05:01 PM Electronically Signed By:Renata Gibson RN
--- NOTE | 2017-10-14 17:53 | GCON ---
[f rep st] CONSULTATION DATE OF CONSULTATION: 10/14/2017 CONSULTING PHYSICIAN: Lanny Polk MD REASON FOR CONSULTATION: Bilateral hydronephrosis. HISTORY OF PRESENT ILLNESS: The patient is a 76-year-old lady with end stage multiple sclerosis, adm itted due to acute renal failure and pseudomonas urinary tract infection. Her acute renal failure mendenhall s resolved with the Barton catheter placement and hydration. She was admitted on 10/09/2017, her son was with her upon admission. Unable to get a history from the patient. No family is here and she is not really able to give a history. She is being seen by Infectious Disease. She is in tamsulosin w hich would make me think she has a history of urinary retention. On CT scan, she had a Barton cathete r in place and bilateral hydronephrosis and the dilated ureters bilaterally. Upon admission, her cre atinine was around 4, now it is 1.3. PAST MEDICAL HISTORY: Significant for multiple sclerosis, gait instability. PAST SURGICAL HISTORY: No recent surgical history. FAMILY HISTORY: Noncontributory. REVIEW OF SYSTEMS: A 10-point review of systems was attempted. She was not able to give a history. PHYSICAL EXAMINATION: GENERAL: No apparent distress. HEENT: Normal conjunctiva. Normal inspectio n, atraumatic. Dry mucous membranes. RESPIRATORY: Clear to auscultation bilaterally, normal breath sounds. CARDIOVASCULAR: Normal rate and rhythm. VITAL SIGNS: She is currently afebrile, vitals a re stable. HOME MEDICATIONS: Aspirin, atorvastatin, fludrocortisone, estrogen, multivitamin, Zofran, tamsulosin , Tamiflu. She is currently on cefepime. LABORATORIES: Upon admission, her white count was 14.9, creatinine was 4.8 with a hemoglobin of 11.[address] scan as mentioned above without contrast upon admission revealed bilateral hydro with dilated uret ers. ASSESSMENT AND PLAN: Patient with most likely history of retention secondary to multiple sclerosis a nd immobility. Her creatinine has improved with Barton catheter placement. Hopefully, her creatinine will improve far enough tomorrow that she can get contrast. Currently her calculated creatinine meghan arance is only 40. A contrasted study will let us know if she is still obstructed. The concern that bilateral hydronephrosis is chronic in nature and she should probably discharged home with a Barton c atheter. If she is obstructed on the CT with contrast, she will need to have bilateral percutaneous tubes placed in invasive radiology. /[id number]/MODL
[2017-10-14] MEDS ORDERED: D5W 250 ML IV ONE (18:02)
[2017-10-14] MEDS: POTASSIUM Cl (KCl) 10 MEQ in NS 50 ML IV SCH (23:45)
[2017-10-15] MEDS: POTASSIUM Cl (KCl) 10 MEQ in NS 50 ML IV SCH ×3 (01:28→22:28)
[2017-10-15 04:38] LABS: PLATELET COUNT 275 10^3/uL (150-400)
[2017-10-15] MEDS: HEPARIN 5,000 UNIT/0.5 ML SYR SC SCH ×3 (04:51→22:06)
[2017-10-15] MEDS: ALBUTEROL 3 ML DEYVIAL IH SCH ×5 (05:09→19:56)
[2017-10-15] MEDS ORDERED: D5W 250 ML IV ONE (06:47)
--- NOTE | 2017-10-15 06:57 | HOSPPROG ---
Hospitalist Progress Note Assessment/Plan: 76 yo female with progressive MS, wheelchair bound, presents to ED from SNF with weakness, diagnosed with Influenza and UTI. Condition has declined. * AHRF secondary to Influenza A - perihilar thickening on CXR (pers reviewed and interp), atelectasis. -O2 5 LPM --> 3 LPM -cont O2, nebs, supportive care -pt has refused tamiflu x4 days * Hypotension - resolved with volume repletion * UTI/Pyelo - pseudomonas - gross pus with catheter placement, CT non-con with b/l hydro. urology consulted, planned for CT with contrast today to eval for obstruction and need for nephrostomy tubes vs stents, but INR still elevated. See goals of care below, but based on her advanced directive, she does not want invasive procedures. -Cont IV cefepime -pain control with roxanol * HANNAH due to hypovolemia / hydronephrosis - Cr down to 1.3 from 4.8, now back up to 1.7, ?due to persistent hydro. She has h/o urinary retention and has required mejía in the past. Expect hydro to slowly resolve with mejía now in place, good uop noted. -cont IVF, follow * Advanced MS - wheelchair bound at baseline, lives at [place] * PVD - ASA * Increased LFT - suspect due to infection, follow * Hypernatremia - persists despite D5W boluses and increased rate from 50/hr to 150/hr. FWD 3 L yest. -renal consult today for assistance -repeat D5W bolus now, increase rate to 175 / hr for now -q4h Na * Hypokalemia - replace per protocol, follow * Metabolic encephalopathy - suspected due to infection with influenza and UTI * DVT PPLX - heparin * FEN - 4-5 days without nutrition. Per below, pt has advanced directive which states no feeding tube and sons do not wish to artificially feed her. * Code status - full code * Care goals - discussed with sons and reviewed her advanced directive, which states no CPR, no intubation, no aggressive or invasive interventions, no antibiotics. Sons agree she would not want a feeding tube or any interventions and wish to change her to DNR/DNI. Plan to change to comfort care measures if her condition declines. Will cont IVF's, atbx, supportive care for now. Subjective: Pt encephalopathic, appears uncomfortable. No fevers, but she seems to be rigoring a bit. No N/V. She isn't opening her eyes or interacting much. She shook her head no when son asked if she would want feeding tube / artificial nutrition Objective: Vital Signs Temp Pulse Resp BP Pulse Ox 37.4 C 106 H 14 132/59 H 97 10/15/17 04:25 10/15/17 04:25 10/15/17 05:09 10/15/17 04:25 10/15/17 05:09 Laboratory Results 10/15/17 04:15 10/15/17 04:15 10/14/17 10/15/17 10/16/17 05:59 05:59 05:59 Intake Total 547 1622 Output Total 1950 1250 Balance -1403 372 PT 14.5 SEC (12.0-15.0) 10/09/17 23:15 INR 1.11 (0.83-1.16) 10/09/17 23:15 - Physical Exam Constitutional: uncomfortable Eyes: PERRL Ears, Nose, Mouth, Throat: dry mucous membranes Cardiovascular: tachycardia Respiratory: no respiratory distress, reduced air movement Gastrointestinal: normoactive bowel sounds, soft, non-tender abdomen Skin: warm Musculoskeletal: generalized weakness Psychiatric: encephalopathic ICD10 Worksheet Patient Problems: Problems Problem Status Onset Dehydration Acute Palliative care encounter Acute Renal failure Acute UTI (urinary tract infection) Acute
[2017-10-15] MEDS: TAMSULOSIN HCL 0.4 MG CAP PO SCH (08:32)
[2017-10-15] MEDS: FLUTICASONE NASAL 120 SPRAYS/16 GM MDI EACHNARE SCH ×2 (08:32→22:06)
[2017-10-15] MEDS: CETIRIZINE 10 MG TAB PO SCH (08:32)
[2017-10-15] MEDS: ATORVASTATIN CALCIUM 20 MG TAB PO SCH (08:32)
[2017-10-15] MEDS: guaiFENesin 600 MG TAB.ER PO SCH ×2 (08:32→22:06)
[2017-10-15] MEDS: Teriflunomide [Aubagio] 14 MG PO SCH (08:33)
[2017-10-15] MEDS ORDERED: ACETAMINOPHEN 650 MG SUPP PR PRN (08:40)
--- NOTE | 2017-10-15 10:44 | WOCRNPDOC ---
SHARLENE Advanced Assessment Note - Skin Integrity Problem, Advanced Assess Sacrum Pressure Injury Dressing Type: Allevyn Life Dressing Description: Clean/Dry, Intact Exudate Amount: Minimal Exudate Color: Brown Exudate Characteristic(s): Thick Integumentary Issue Intervention: Dressing Changed Rani Wound Tissue: Erythema Wound Bed Color: Black, Brown, Yellow Wound Bed Constitution: Mixed Loose & Adhered Slough/Eschar (60% yellow adhered/ 40% eschar) Site Odor: None Site Measurement - Head-to-Toe Length X Width X Depth (cm): 6.0w0fmgiszr/eschar Pressure Injury Stage: Deep Tissue Injury (DTI) Pressure Injury Present on Admit: Yes Skin Integrity Problem Comment: Patient rolled to her right side with assist from JOSSUE Rodriguez. Zulay taken down to reveal wound bed covered with adhered yellow slough and black eschar. Minimal attempt to mechanically debride as patient very uncomfortable. Will continue honey therapy and follow up on this wound later to this week to monitor how it continues to evolve. Right Heel Pressure Injury Dressing Type: Open to Air (Heel boots in place) Exudate Amount: None Integumentary Issue Intervention: Visualized Under Dressing Rani Wound Tissue: Blanching, Intact Wound Bed Color: Purple, Yellow Wound Bed Constitution: Intact Serous Filled Blister (drained, flat) Wound Edges: Well Defined Site Measurement - Head-to-Toe Length X Width X Depth (cm): [id number] Pressure Injury Stage: Deep Tissue Injury (DTI) Pressure Injury Present on Admit: Yes Skin Integrity Problem Comment: Heel boots removed. Skin intact and flat. Continue current plan of preventing further injury. Wound care will continue to monitor evolution of this wound. Will round again later this week.
[2017-10-15] MEDS: CEFEPIME HCL 2 GM in STERILE WATER INJ 12.5 ML IV SCH (11:59)
[2017-10-15] MEDS: ALTEPLASE 2 MG VIAL IVP PRN ×2 (11:59→14:31)
[2017-10-15] MEDS: morphINE 10 MG/0.5 ML UDSYR PO PRN ×2 (13:02→22:06)
[2017-10-15] MEDS ORDERED: D5W 1,000 ML IV SCH (13:15)
--- NOTE | 2017-10-15 13:22 | PCMIDPN ---
Assessment/Plan: Assessment/Plan: 1. Pseudomonas Pyonephrosis: - PsA on cx Intermediate to levaquin. - Ct ab/p noted with bilateral hydronephrosis with dilated ureter to UV jx. -appreciate urology eval. -may need perc nephrostomy tubes -however, pt's wishes suggest no aggressive intervention -Continue Cefepime renally dosed. may need to readjust if creatinine continues to rise. - wbc improved. creatinine fluctuating. - care coordinated with pharmacy - care coordinated with hospitalist team. 2. Influenza A - was on tamiflu but she refused every dose. - droplet precautions Meds cefepime 2g daily Subjective: afebrile. resting. nods to quesitons. denies abd pain or sob. doesn't really want to talk. Objective: Vital Signs Temp Pulse Resp BP Pulse Ox 37.2 C 103 H 18 130/62 H 96 10/15/17 08:50 10/15/17 10:53 10/15/17 10:53 10/15/17 08:50 10/15/17 10:53 Microbiology 10/10/17 02:05 Blood Culture - Final Blood 10/10/17 01:33 Blood Culture - Final Blood Laboratory Results 10/15/17 04:15 10/15/17 10:09 10/14/17 10/15/17 10/16/17 05:59 05:59 05:59 Intake Total 547 1622 Output Total 1950 1250 Balance -1403 372 - Physical Exam General Appearance: alert Respiratory: coarse breath sounds Cardiac/Chest: regular rate, rhythm Extremities: No swelling Abdomen: normal bowel sounds, non-tender, soft, No distended Pelvic Exam: mejía Skin: No rash ICD10 Worksheet Patient Problems: Problems Problem Status Onset Dehydration Acute Palliative care encounter Acute Renal failure Acute UTI (urinary tract infection) Acute
--- NOTE | 2017-10-15 13:42 | GCON ---
[f rep st] CONSULTATION DATE OF CONSULTATION: 10/15/2017 REASON FOR CONSULTATION: Opinion regarding hyponatremia. HISTORY OF PRESENT ILLNESS: The patient is a 76-year-old female who resides at [facility]. She was brought to the emergency department on 10/10/2017, with complaints of generalized weakne ss, fevers, chills, and recent exposure to influenza. She was treated for her exposure with Tamiflu. The patient has multiple sclerosis and is essentially bed ridden. She does not want to answer any of my questions today. Patient was admitted to the hospital on 10/15/2017, she was diagnosed with in fluenza A pneumonia, as well as a Pseudomonas urinary tract infection and has been treated with cefep kaia. CURRENT MEDICATIONS: Include: 1. Albuterol. 2. Tylenol. 3. Lipitor 20 mg a day. 4. Calcium gluconate as necessary. 5. Cefepime 2 g daily. 6. Zantac. 7. D5W at 175 cc/hour. 8. Estrogen. 9. Flonase. 10. Flomax 0.4 mg a day. ALLERGIES: To terfenadine, mold, trees, and grass. SOCIAL HISTORY: She lives at [facility]. She formerly smoked, none currently. Does no t use alcohol, IV or recreational drugs. FAMILY HISTORY: Negative for multiple sclerosis. PAST MEDICAL HISTORY: Significant for: 1. Multiple sclerosis. 2. Falls at home. 3. Vascular occlusive disease. 4. Pressure ulcerations. 5. Hypothyroidism. 6. Hyperlipidemia. 7. Urge incontinence. REVIEW OF SYSTEMS: The patient does not wish to answer any of my questions today. PHYSICAL EXAMINATION: VITAL SIGNS: Blood pressure is 130/62, pulse 103, respirations 18, temperatur e 37.2 degrees. Urine output 1250 cc so far today. GENERAL: She is cachectic and chronically ill-a ppearing. HEENT: Pupils are reactive to light. Mucous membranes are dry. NECK: No lymphadenopath y or thyromegaly. HEART: Tachycardic, regular. No rub. No S3. LUNGS: Decreased breath sounds in the bases. She does have some rales on the right. No wheezes. ABDOMEN: Flat. Bowel sounds are p ositive. Nontender, nondistended. EXTREMITIES: No edema. NEUROLOGIC: No asterixis. SKIN: She h as breakdown over her sacrum and her right heel. LYMPHATIC: No palpable lymphadenopathy. MUSCULOSK ELETAL: No effusions. LABORATORY/IMAGING: On admission, she had a serum sodium of 133, potassium of 5.3, creatinine of 4.8 . Barton catheter was placed and she had diuresis with improvement in her renal function from a serum creatinine of 4.8 down to 3.4 on 10/10/2017; 2.9 on 10/11; 2.4 on 10/12; 1.9 on 10/13; yesterday was 1.7, today, 1.7. A CT scan of the abdomen and pelvis done on 10/13/2017, showed bilateral hydronephrosis and dilatatio n of the ureters to the level of the ureterovesical junction. No mass or calcification. She also mendenhall d a right basilar opacity and pleural effusion and air. Serum sodium this morning is 153, potassium 3.8, chloride 131, CO2 15, BUN 7, creatinine 1.6, glucose 182, calcium 9, ionized calcium of 1.37. Influenza A is positive. Urine culture was positive for P seudomonas. Blood cultures x2 were negative at 5 days. Urine chemistries this morning showed a urin e osmolality of 374, urine creatinine 41, urine sodium of 71. IMPRESSION: 1. Acute kidney failure due to urinary obstruction. We have seen a nice improvement in her renal fu nction since Barton catheter was placed, things have hung up around serum creatinine around of 1.6-1.7 . 2. Hypernatremia. I suspect this is due to postobstructive diuresis. 3. Hypercalcemia. I suspect this is due to hypercalcemia of immobility. 4. Peripheral vascular occlusive disease with sacral and right heel ulcerations. 5. Multiple sclerosis. 6. Deconditioned. 7. Vascular disease. RECOMMENDATIONS: 1. Continue her D5W. I would consider increasing it to 200 cc/hour. 2. Continue to follow her serum sodium serially. 3. Watch her bicarbonate level. Her serum creatinine remains hung up around 1.6. Urology is involv ed to see if there is anything other that needs to be done than her Barton catheter placement. 4. Follow her calcium levels. 5. Consider parathyroid hormone level, although it may well be elevated due to her acute kidney inju ry. 6. Continue to follow her electrolytes, volume status, and renal function. 7. She has recently changed from a full code down to do not resuscitate, do not intervene. Thanks for allowing me to participate in the care of your patient. If there are any questions, pleas e do not hesitate to contact us. We will be following along with you. /[id number]/MODL
[2017-10-15] MEDS: SODIUM BICARBONATE 50 MEQ in D5W 1,000 ML IV SCH (16:48)
--- NOTE | 2017-10-15 18:39 | ASMTCMCOM ---
CM Note CM Note Notes: Spoke with Alicia who states patient's family is not interested in palliative care. She attempted to meet with patient's son Kirill on several occasions and he could not find the time and indicated the family was not interested. Alicia's understanding is patient is full code status at this time. CM will follow. Date Signed: 10/15/2017 06:38 PM Electronically Signed By:Reina Canseco LCSW
[2017-10-16] MEDS: morphINE 10 MG/0.5 ML UDSYR PO PRN ×2 (00:08→05:18)
[2017-10-16] MEDS: POTASSIUM Cl (KCl) 10 MEQ in NS 50 ML IV SCH ×2 (00:08→01:44)
[2017-10-16] MEDS: HEPARIN 5,000 UNIT/0.5 ML SYR SC SCH (05:18)
[2017-10-16 06:00] LABS: PLATELET COUNT 223 10^3/uL (150-400)
[2017-10-16] MEDS: ALBUTEROL 3 ML DEYVIAL IH SCH ×2 (06:17→11:31)
[2017-10-16] MEDS: SODIUM BICARBONATE 50 MEQ in D5W 1,000 ML IV SCH (06:35)
[2017-10-16] MEDS ORDERED: POTASSIUM Cl (KCl) 50 ML IV ONE (08:06)
[2017-10-16] MEDS ORDERED: POTASSIUM Cl (KCl) 20 MEQ in D5W 50 ML IV SCH (08:30)
--- NOTE | 2017-10-16 08:37 | SOAPPROG ---
SOAP Progress Note Assessment/Plan: Assessment: HANNAH, creat improved today hypernatremia, slowly improving acidosis, better with bicarb in IV fluids Plan: continue every 6 hour sodium checks while we are still actively treating her hypernatremia continue bicarb follow lytes vol and renal function 10/16/17 08:32 Subjective: not answering my questions today does not shake or nod her head to yes/no questions Objective: Vital Signs Temp Pulse Resp BP Pulse Ox 36.8 C 99 20 110/71 94 10/16/17 04:55 10/16/17 04:55 10/16/17 04:55 10/16/17 04:55 10/16/17 04:55 Microbiology 10/10/17 02:05 Blood Culture - Final Blood 10/10/17 01:33 Blood Culture - Final Blood Laboratory Results 10/16/17 05:45 10/16/17 05:45 10/15/17 10/16/17 10/17/17 05:59 05:59 05:59 Intake Total 1622 1649 Output Total 1250 2125 Balance 372 -476 PT 14.5 SEC (12.0-15.0) 10/09/17 23:15 INR 1.11 (0.83-1.16) 10/09/17 23:15 Physical Exam - Physical Exam General Appearance: other (cachectic) Respiratory: No rhonchi, No wheezing Cardiac/Chest: regular rate, rhythm, No edema Abdomen: non-tender Skin: warm/dry Extremities: No swelling Neuro/Psych: other (no response to my questions today) ICD10 Worksheet Patient Problems: Problems Problem Status Onset Dehydration Acute Palliative care encounter Acute Renal failure Acute UTI (urinary tract infection) Acute
[2017-10-16] MEDS: guaiFENesin 600 MG TAB.ER PO SCH (08:44)
[2017-10-16] MEDS: FLUTICASONE NASAL 120 SPRAYS/16 GM MDI EACHNARE SCH (08:44)
[2017-10-16] MEDS: ATORVASTATIN CALCIUM 20 MG TAB PO SCH (08:44)
[2017-10-16] MEDS: CETIRIZINE 10 MG TAB PO SCH (08:44)
[2017-10-16] MEDS: TAMSULOSIN HCL 0.4 MG CAP PO SCH (08:45)
[2017-10-16] MEDS: Teriflunomide [Aubagio] 14 MG PO SCH (08:45)
[2017-10-16 09:08] VITALS: O2SAT 97
[2017-10-16] MEDS: ESTROGENS,CONJUGATED 30 GM CRTUBE VG SCH (09:14)
[2017-10-16] MEDS ORDERED: LORazepam 2 MG/ML INJ IVP PRN (11:23)
[2017-10-16] MEDS ORDERED: GLYCOPYRROLATE 0.2 MG/1 ML VIAL IVP/IM PRN (11:23)
[2017-10-16] MEDS: CEFEPIME HCL 2 GM in STERILE WATER INJ 12.5 ML IV SCH (12:34)
--- NOTE | 2017-10-16 15:27 | PDIAF ---
- Diagnosis Diagnosis: Pyelonephritis, Acute Resp Failure, Influenza, Metabolic encephalopathy, MS Code Status: Do Not Resuscitate - Medication Management Discharge Medications: Medications to Continue on Transfer Glycopyrrolate 0.2 mg IVP/IM Q4HRS PRN ml 10/16/17 [Last Taken Unknown] LORazepam [Ativan inj 2 mg/ml (*)] 0.5 - 2 mg IVP Q2HRS PRN inj 10/16/17 [Last Taken Unknown] Ondansetron HCl Pf [Zofran 4 mg Inj (*)] 4 mg IVP Q4HRS PRN vial 10/16/17 [ Last Taken Unknown] morphINE [Roxanol 10 mg/0.5 ml oral soln (*)] 5 mg PO Q2HRS PRN udsyr 10/16/17 [Last Taken Unknown] Discharge Medications: Refer to the Discharge Home Medication list for PRN reason. - Orders Services needed: Registered Nurse Isolation Type: Droplet Isolation Diet Recommendation: other (NPO) Diet Texture: None - Follow Up Care Current Providers and Referrals: Patient,NotPresent [Unknown] - As per Instructions
--- NOTE | 2017-10-16 15:50 | PDDCSUM ---
Discharge Summary Discharge Summary: Date of Admission: October 10, 2017 Date of Discharge: October 16, 2017 Discharge Diagnoses: Acute hypoxemic respiratory failure Acute bronchitis secondary to influenza A Severe Sepsis Pyelonephritis/UTI-Pseudomonas Metabolic encephalopathy Acute kidney injury secondary to hypovolemia and hydronephrosis Hypernatremia, hyperchloremic Hypercalcemia Advanced MS Peripheral vascular disease Generalized weakness/debility Severe protein calorie malnutrition Admission Diagnoses: Acute renal failure Acute on chronic generalized weakness Advanced multiple sclerosis Anemia Hyponatremia Hyperkalemia Hyperglycemia Hypoalbuminemia Peripheral vascular disease Hyperlipidemia Hypothyroidism Malnutrition Consultants: Infectious Disease-Dr. Asia Johnson Palliative medicine-Alicia Gaytan, [employer] Nephrology-Dr. Clarence Marshall Urology - Dr. Win[facility] Course: The patient was a 76-year-old female with medical history of advanced MS, peripheral vascular disease, hypothyroidism, chronic debility requiring wheelchair who was transferred from [facility] with sepsis with dehydration, acute renal failure, and acute respiratory failure. She was found to have bronchitis secondary to influenza A and pyelonephritis secondary to Pseudomonas. Patient was treated with antimicrobials and standard supportive care in the hospital. She failed to improve with therapy. Her condition declined and she developed metabolic encephalopathy. With poor prognosis, patient was deemed to be hospice appropriate. Her 4 sons agreed to change her status to hospice for medical futility. All treatment was stopped on 10/16/2017 and patient was transferred to [facility] inpatient hospice. Physical Exam: Gen: elderly female, lying in bed, unresponsive to commands, lethargic, in NAD. HEENT: MMM. CV: RRR no MRG. Resp: unlabored breathing. Condition: Poor. Discharged to: Inpatient Hospice - [facility] Tests: see medical chart from hospital. Medications: Please see med rec form. Palliative Meds only. Special instructions: N/A. Follow up: with Hospice specialist. > 30 minutes of total time was spent on counseling and coordination of care for this patient's discharge.
[2017-10-16 16:00] VITALS: BP 133/66; PULSE 101; RESP 20; TEMP 98.1
--- NOTE | 2017-10-16 18:16 | ASDISCHSUM ---
Discharge Information Plan Status:Hospice-Inpatient Medically Cleared to Leave: Discharge Date:10/16/2017 04:20 PM CM D/C Disposition:Hospice Facility ADT D/C Disposition:Hospice Facility Projected Discharge Date:10/16/2017 11:00 AM Transportation at D/C:ALS/BLS Discharge Delay Reason: Follow-Up Date:10/16/2017 11:00 AM Discharge Slot: Final Diagnosis: Placement Information Referral Type:*Hospice Referral ID:[id number] Provider Name:[facility] ([facility]) Address 1:[address] [place] Address 2: City:[place] Selection Factors: State:[place] Patient Contact Information Contact Name:JASON Relationship:Son Address: Work Phone: City: [facility] Phone: [facility] Code: Email: Financial Information Financial Class: Primary Plan Desc:MEDICARE INPATIENT Primary Plan Number:[id number] Secondary Plan Desc:MEDICAID [place] Secondary Plan Number:[id number] Assessment Information [facility] Initial CM Assessment Living Arrangements What is your living Answers: Alone arrangement? Who do you live with? Type Of Residence What kind of residence do Answers: House you live in? Discharge Plan Comments Coordination Status Comments Notes: Patient is a 76yo female with a hx of MS, peripheral vascular disease, hypothyroidism who was admitted for acute renal failure, hyponatremia, anemia, and hyperkalemia. Patient lives at [place] . No orders for therapies yet. D/C needs TBD. Patient most likely to d/c back to [place]. CM will follow. Date Signed: 10/11/2017 09:55 AM Electronically Signed By:Reina Canseco LCSW [facility] CM Progress Note CM Note CM Note Notes: Per RN pt has been refusing care and not eating. Discussed w/ palliative care RN STAFFING, Alicia who plans on meeting w/pt tomorrow AM to discuss. CM will follow. Date Signed: 10/14/2017 05:01 PM Electronically Signed By:Renata Gibson RN [facility] Progress Note CM Note CM Note Notes: Spoke with Alicia who states patient's family is not interested in palliative care. She attempted to meet with patient's son Kirill on several occasions and he could not find the time and indicated the family was not interested. Alicia's understanding is patient is full code status at this time. CM will follow. Date Signed: 10/15/2017 06:38 PM Electronically Signed By:Reina Canseco LCSW Case Management Discharge Plan Note Case Management Discharge Discharge Order Complete? Answers: Yes Transportation Arranged Answers: Other Notes: [address] [facility] Case Management Transport Answers: Yes Notes: completed by [facility] RN Form Complete Faxed Final Orders Answers: Yes Agency/Facility Transfer Answers: Yes Report Printed & Faxed to Receiving Agency Family Notified Answers: Yes Discharge Comments Notes: After and Meena from palliative care met w/pt and family, family decided to move forward w/Hospice. They used [facility] since care center was option. JOSSUE Aldridge from [facility] did eval and pt accepted to [facility] [place]. Family in agreement with this. Pt dc'd at 4 PM to [place]. Orders/info sent through [email or web address]. Discussed w/RN. Notified Mauricio at [place] where pt has been residing. Date Signed: 10/16/2017 05:40 PM Electronically Signed By:Renata Gibson RN Intervention Information
--- NOTE | 2017-10-21 11:22 | PQFORM ---
PHYSICIAN QUERY FORM Needs Your Response This query form is being sent to you to assure this patient record is coded properly. Please respond to the question below: INCIDENT ANALYST QUESTION: Dr. East, On your discharge summary, you document that the patient had severe sepsis and the patient was transferred from [place] with sepsis. On Dr. Polk's H&P, she documents the 'patient does not meet any systemic inflammatory response syndrome or sepsis criteria'. There is also no documentation in the progress notes of the patient having sepsis. After study, can this patients sepsis be further defined as: severe sepsis, present on admission ____x severe sepsis, not present on admission other the patient was not known to have sepsis during this admission Thank you for clarifying, SHELBIE Doherty HIM Coding INSTRUCTIONS FOR RESPONSE: Answer question by clicking on the "Edit Document" button. Move cursor to area below the stars. When complete, hit "Save." Click on the "Sign" button, then click "Sign" again. Type in your PIN and hit "Enter." MTDD
== END 2017-10-16 16:20 | disposition hospice, home (50) | DRG 689 ==
LOC: EDUNIT# → F3E 10-10 14:43 → F2N 10-10 18:57 → F1N 10-11 20:15
PROVIDERS: ADMIT Family Medicine; ATTEND Internal Medicine
PROC: 02HV33Z Insertion of Infusion Device into Superior Vena Cava, Percutaneous Approach (ICD-10-PCS; principal; 2017-10-10)
DX: N10 Acute pyelonephritis (principal); J10.1 Influenza due to other identified influenza virus with other respiratory manifestations; A41.89 Other specified sepsis; R65.20 Severe sepsis without septic shock; B96.5 Pseudomonas (aeruginosa) (mallei) (pseudomallei) as the cause of diseases classified elsewhere; J96.01 Acute respiratory failure with hypoxia; N17.9 Acute kidney failure, unspecified; G93.41 Metabolic encephalopathy; N13.6 Pyonephrosis; E86.0 Dehydration; E87.1 Hypo-osmolality and hyponatremia; E87.0 Hyperosmolality and hypernatremia; G35 Multiple sclerosis; E46 Unspecified protein-calorie malnutrition; E87.5 Hyperkalemia; E87.6 Hypokalemia; R47.1 Dysarthria and anarthria; E03.9 Hypothyroidism, unspecified; E78.5 Hyperlipidemia, unspecified; N39.41 Urge incontinence; D64.9 Anemia, unspecified; E88.09 Other disorders of plasma-protein metabolism, not elsewhere classified; R73.9 Hyperglycemia, unspecified; L89.150 Pressure ulcer of sacral region, unstageable; L89.610 Pressure ulcer of right heel, unstageable; I73.9 Peripheral vascular disease, unspecified; I87.2 Venous insufficiency (chronic) (peripheral); R94.5 Abnormal results of liver function studies; Z66 Do not resuscitate; Z51.5 Encounter for palliative care; Z79.82 Long term (current) use of aspirin; Z99.3 Dependence on wheelchair
CPT/HCPCS: 92526-GN; 92610-GN; 97163-GP; 97167-GO; C1751; G8978-GP-CN; G8979-GP-CL; G8987-GO-CM; G8988-GO-CK; G8996-GN-CK; G8997-GN-CK; G8998-GN-CK; J0692; J0696; J2997; J7613